=== PATIENT | male | born 1930 | race Caucasian/White ===

== ENCOUNTER 2017-10-10 15:38 | Inpatient (IN) | payer OTHER, MEDICARE ==
[~2017-10-10] VITALS: Ht 175.3 cm; Wt 90.4 kg
[~2017-10-10 15:38] MED LIST: ADVAIR HFA120 INHALA IH; AMLODIPINE BESY10 MG PO; ARICEPT10 MG PO; CERTAVITE WITH1 EAC1 PO; CHILD ASPIRIN81 M1 PO; FLONASE16 G1 BOTH NARES; K-DUR20 MEQ PO; KETOCONAZOLE120 ML TP; LEVAQUIN750 MG PO; LOPRESSOR25 MG PO; LORAZEPAM0.5 MG PO; LOSARTAN-HCTZ1 EAC1 PO; PREDNISONE10 MG PO; PRESERVISION T1 EACH PO; SIMVASTATIN40 MG PO; SPIRIVA RESPIMAT4 GM IH; VISINE MAX REDN15 ML BOTH EYES; [UNRECOGNIZED DRUG - OTHER]
[2017-10-10 16:06] LABS: BASOPHIL (%) 0.3 % (0-1); EOSINOPHIL (%) 0.1 % (0-5); HEMATOCRIT 42.8 % (38.0-50.0); HEMOGLOBIN 14.3 G/DL (12.5-16.6); IMMATURE GRANULOCYTE (%) 0.7 % (0.0-0.7); MCH 32.3 PG (29.0-34.0); MCHC 33.4 G/DL (30.0-36.0); MCV 96.6 FL (86-99); MONOCYTE (%) 16.4 % (3-12); MONOCYTE COUNT 2.2 K/uL (0-0.8); NEUTROPHIL (%) 67.5 % (45-76); NEUTROPHIL COUNT 9.1 K/uL (1.8-6.4); PLATELET COUNT 184 K/uL (156-360); RBC DIS.WIDTH-CV 13.2 % (11.8-14.6); RBC DIS.WIDTH-SD 47.3 % (39-53); RED BLOOD COUNT 4.43 M/uL (4.00-5.50); WHITE BLOOD COUNT 13.5 K/uL (4.1-10.2)
[2017-10-10 16:13] LABS: INTER. NORMALIZED RATIO 1.2
[2017-10-10 16:15] LABS: PTT 33.4 SEC (25-37)
[2017-10-10 16:21] LABS: ALBUMIN 3.7 g/dL (3.2-4.8); CHLORIDE 103 mEq/L (99-109)
[2017-10-10 16:22] LABS: POTASSIUM 5.3 mEq/L (3.7-5.4); SODIUM 141 mEq/L (136-147)
[2017-10-10 16:24] LABS: GLUCOSE 106 mg/dL (70-99); TOTAL PROTEIN 7.6 g/dL (6.4-8.3)
[2017-10-10 16:26] LABS: TOTAL BILIRUBIN 0.9 mg/dL (0.0-1.0)
[2017-10-10 16:27] LABS: ALKALINE PHOSPHATASE 97 IU/L (3-129); CREATININE 1.8 mg/dL (0.6-1.3); GFR ESTIMATE (CALCULATED) 38 mL/min/ (58.99-99999)
[2017-10-10 16:29] LABS: AST (GOT) 18 IU/L (2-34); UREA NITROGEN (BUN) 28 mg/dL (9-23)
[2017-10-10 16:30] LABS: ALT (GPT) 15 IU/L (3-49)
[2017-10-10 16:31] LABS: LIPASE 26 U/L (1.0-51.0)
[2017-10-10 16:47] LABS: TROP-I INTERPRETATION NEGATIVE; TROPONIN-I 0.06 ng/mL (0.0-0.30)
[2017-10-10 17:29] LABS: APPEARANCE CLEAR ((CLEAR)); BILIRUBIN NEGATIVE; BLOOD NEGATIVE; COLOR YELLOW ((YELLOW)); GLUCOSE (STRIP) NEGATIVE; KETONES NEGATIVE; LEUKOCYTES NEGATIVE; NITRITE NEGATIVE; PROTEIN (STRIP) 30; SPECIFIC GRAVITY 1.009 (1.000-1.030); UCUL ADDED? NO; UROBILINOGEN 0.2 MG/DL (0.2-1.0)
[2017-10-10] MEDS ORDERED: ADVAIR HFA120 INHALA IH (17:40)
[2017-10-10] MEDS ORDERED: NORVASC5 MG PO (17:41)
[2017-10-10] MEDS ORDERED: FUROSEMIDE40 MG PO (17:42)
[2017-10-10] MEDS ORDERED: KLOR-CON M2020 MEQ PO (17:42)
[2017-10-10] MEDS ORDERED: COZAAR100 MG PO (17:42)
[2017-10-10] MEDS ORDERED: LEXAPRO10 MG PO (17:42)
[2017-10-10] MEDS ORDERED: SPIRIVA RESPIMAT4 GM IH (17:43)
[2017-10-10] MEDS ORDERED: ATORVASTATIN CA10 MG PO (17:45)
[2017-10-10] MEDS ORDERED: TYLENOL REGULA325 MG PO (17:45)
[2017-10-10] MEDS ORDERED: HYLANDS LEG CRAMP PM PO (17:46)
[2017-10-10 22:21] VITALS: BP 135/65
[2017-10-10 23:40] VITALS: BP 155/57
[2017-10-11 04:07] VITALS: BP 142/94
[2017-10-11 06:22] LABS: BASOPHIL (%) 0.4 % (0-1); EOSINOPHIL (%) 0.7 % (0-5); EOSINOPHIL COUNT 0.1 K/uL (0-0.3); HEMATOCRIT 33.8 % (38.0-50.0); IMMATURE GRANULOCYTE (%) 0.4 % (0.0-0.7); LYMPHOCYTE COUNT 1.5 K/uL (1.0-2.8); MCH 32.1 PG (29.0-34.0); MCHC 32.5 G/DL (30.0-36.0); MCV 98.5 FL (86-99); MONOCYTE (%) 14.8 % (3-12); MONOCYTE COUNT 1.4 K/uL (0-0.8); NEUTROPHIL (%) 67.7 % (45-76); NEUTROPHIL COUNT 6.2 K/uL (1.8-6.4); NRBC (%) 1.6 /100 WBC (0-0); PLATELET COUNT 136 K/uL (156-360); RBC DIS.WIDTH-CV 13.6 % (11.8-14.6); RBC DIS.WIDTH-SD 49.2 % (39-53); WHITE BLOOD COUNT 9.1 K/uL (4.1-10.2)
[2017-10-11 06:23] LABS: RED BLOOD COUNT 3.43 M/uL (4.00-5.50)
[2017-10-11 06:32] LABS: CHLORIDE 109 MEQ/L (99-109); CREATININE 1.5 MG/DL (0.6-1.3); GFR ESTIMATE (CALCULATED) 47 mL/min/ (58.99-99999); GLUCOSE 95 mg/dL (70-99); SODIUM 141 MEQ/L (136-147); UREA NITROGEN (BUN) 25 mg/dL (9-23)
[2017-10-11 06:38] LABS: POTASSIUM 4.1 MEQ/L (3.7-5.4)
[2017-10-11 08:01] VITALS: BP 127/61
[2017-10-11 11:42] VITALS: BP 143/65
[2017-10-11 16:55] VITALS: BP 132/63
[2017-10-11 19:54] VITALS: BP 138/64
[2017-10-11 23:32] VITALS: BP 118/61
[2017-10-12] VITALS (7 sets, daily range): BP systolic 110–143; BP diastolic 56–70
[2017-10-12 06:22] LABS: BASOPHIL (%) 0.1 % (0-1); EOSINOPHIL (%) 0 % (0-5); HEMATOCRIT 36.2 % (38.0-50.0); HEMOGLOBIN 11.5 G/DL (12.5-16.6); IMMATURE GRANULOCYTE (%) 1.1 % (0.0-0.7); LYMPHOCYTE (%) 8.7 % (15-42); LYMPHOCYTE COUNT 0.8 K/uL (1.0-2.8); MCH 31.3 PG (29.0-34.0); MCHC 31.8 G/DL (30.0-36.0); MCV 98.6 FL (86-99); MONOCYTE (%) 2.2 % (3-12); MONOCYTE COUNT 0.2 K/uL (0-0.8); NEUTROPHIL (%) 87.9 % (45-76); NEUTROPHIL COUNT 8.5 K/uL (1.8-6.4); PLATELET COUNT 161 K/uL (156-360); RBC DIS.WIDTH-CV 13.5 % (11.8-14.6); RBC DIS.WIDTH-SD 48.7 % (39-53); RED BLOOD COUNT 3.67 M/uL (4.00-5.50); WHITE BLOOD COUNT 9.6 K/uL (4.1-10.2)
[2017-10-12 06:49] LABS: CHLORIDE 112 MEQ/L (99-109); CREATININE 1.6 MG/DL (0.6-1.3); GFR ESTIMATE (CALCULATED) 44 mL/min/ (58.99-99999); POTASSIUM 4.6 MEQ/L (3.7-5.4); SODIUM 143 MEQ/L (136-147); UREA NITROGEN (BUN) 28 mg/dL (9-23)
[2017-10-12 06:52] LABS: GLUCOSE 163 mg/dL (70-99)
[2017-10-13 03:43] VITALS: BP 157/71
[2017-10-13 07:05] VITALS: BP 147/70
[2017-10-13 16:02] VITALS: BP 138/69
[2017-10-13 23:23] VITALS: BP 149/73
[2017-10-14 07:50] VITALS: BP 176/77
[2017-10-15 00:42] VITALS: BP 147/70
[2017-10-15 06:08] LABS: BASOPHIL (%) 0.5 % (0-1); EOSINOPHIL (%) 0 % (0-5); HEMATOCRIT 34.7 % (38.0-50.0); HEMOGLOBIN 11.2 G/DL (12.5-16.6); IMMATURE GRANULOCYTE (%) 2.1 % (0.0-0.7); LYMPHOCYTE (%) 19.2 % (15-42); LYMPHOCYTE COUNT 1.1 K/uL (1.0-2.8); MCH 31.1 PG (29.0-34.0); MCHC 32.3 G/DL (30.0-36.0); MCV 96.4 FL (86-99); MONOCYTE (%) 12.4 % (3-12); MONOCYTE COUNT 0.7 K/uL (0-0.8); NEUTROPHIL (%) 65.8 % (45-76); NEUTROPHIL COUNT 3.7 K/uL (1.8-6.4); PLATELET COUNT 166 K/uL (156-360); RBC DIS.WIDTH-CV 13.4 % (11.8-14.6); WHITE BLOOD COUNT 5.6 K/uL (4.1-10.2)
[2017-10-15 06:33] LABS: CHLORIDE 110 MEQ/L (99-109); CREATININE 1.4 MG/DL (0.6-1.3); GFR ESTIMATE (CALCULATED) 51 mL/min/ (58.99-99999); GLUCOSE 92 mg/dL (70-99); POTASSIUM 4.3 MEQ/L (3.7-5.4); SODIUM 143 MEQ/L (136-147); UREA NITROGEN (BUN) 45 mg/dL (9-23)
[2017-10-15 08:23] VITALS: BP 169/86
[2017-10-15] MEDS ORDERED: METOPROLOL SUCC25 MG PO (08:27)
[2017-10-15] MEDS ORDERED: AUGMENTIN875 MG PO (08:29)
[2017-10-15] MEDS ORDERED: PREDNISONE10 M1 PO (08:41)
== END 2017-10-15 11:16 | DRG 193 ==
LOC: EME 15:38 → 5EAST 17:45 → EDOF 17:45 → ENRESERV 17:50 → 5EAST 21:42 → ENPENDDIS 10-15 → 5EAST 10-15 11:16
PROVIDERS: Emergency Medicine; Family Medicine; Family Medicine Sports Medicine; Internal Medicine Pulmonary Disease
DX: J18.9 Pneumonia, unspecified organism (principal); Q79.1 Other congenital malformations of diaphragm; J44.1 Chronic obstructive pulmonary disease with (acute) exacerbation; J44.0 Chronic obstructive pulmonary disease with (acute) lower respiratory infection; E86.0 Dehydration; F03.90 Unspecified dementia, unspecified severity, without behavioral disturbance, psychotic disturbance, mood disturbance, and anxiety; E78.5 Hyperlipidemia, unspecified; M48.061 Spinal stenosis, lumbar region without neurogenic claudication; R26.9 Unspecified abnormalities of gait and mobility; R47.81 Slurred speech; K21.9 Gastro-esophageal reflux disease without esophagitis; H35.30 Unspecified macular degeneration; E66.9 Obesity, unspecified; Z68.29 Body mass index [BMI] 29.0-29.9, adult; N18.9 Chronic kidney disease, unspecified; I12.9 Hypertensive chronic kidney disease with stage 1 through stage 4 chronic kidney disease, or unspecified chronic kidney disease; E78.00 Pure hypercholesterolemia, unspecified; R09.02 Hypoxemia; Z90.49 Acquired absence of other specified parts of digestive tract; Z99.81 Dependence on supplemental oxygen; Z87.891 Personal history of nicotine dependence
CPT/HCPCS: 70450; 71045; 71046; 80048; 80053; 81003; 83605; 83690; 84484; 85025; 85610; 85730; 87040; 87070; 87205; 87449; 87502; 93005; 94640; 94640 76; 94760; 94799; 99202; 99281; 99285; J0295; J0456; J1650; J2543; J2930; J7030; J7050; J7512

== ENCOUNTER → 2018-01-06 | Outpatient (CLI) | payer OTHER, MEDICARE ==
[~2018-01-06] MED LIST changes: +ATORVASTATIN CA10 MG PO; +AUGMENTIN875 MG PO; +COZAAR100 MG PO; +FUROSEMIDE40 MG PO; +HYLANDS LEG CRAMP PM PO; +KLOR-CON M2020 MEQ PO; +LEXAPRO10 MG PO; +METOPROLOL SUCC25 MG PO; +NORVASC5 MG PO; +PREDNISONE10 M1 PO; +TYLENOL REGULA325 MG PO
== END ==
LOC: RAD 08:30
DX: I25.10 Atherosclerotic heart disease of native coronary artery without angina pectoris (principal); I05.9 Rheumatic mitral valve disease, unspecified; I09.89 Other specified rheumatic heart diseases; R91.8 Other nonspecific abnormal finding of lung field; N28.9 Disorder of kidney and ureter, unspecified
CPT/HCPCS: 71250